=== PATIENT | male | born 1975 | race Caucasian/White ===

== ENCOUNTER 2023-12-25 08:49 | Outpatient (CLI) | payer OTHER ==
--- NOTE | 2023-12-25 13:27 | MRI Report ---
PROCEDURE: Cervical Spine WO INDICATIONS: CERIVCALGIA TECHNIQUE: Noncontrast sagittal T1 spin echo and T2 fast spin echo, sagittal STIR, foraminal oblique sagittal T2 fast spin echo, and axial gradient echo or T2 fast spin echo through the cervical spine. COMPARISON: None. FINDINGS: Image quality: Excellent. Alignment and Curvature: There is normal bony alignment. Bone Marrow: Marrow demonstrates normal overall signal. Spinal Cord: Visualized spinal cord has normal size and signal. No cerebellar tonsillar herniation. Paraspinous Soft Tissues: No paravertebral masses. Prevertebral soft tissues are normal in thicknes s. C2-C3: Normal in appearance. C3-C4: Normal in appearance. C4-C5: Slight loss of disc signal. Minimal, diffuse disc bulge. No central stenosis. No neural roberto inal narrowing. No neural compression. C5-C6: Loss of disc signal and slight loss of disc height. Mild, diffuse disc bulge. Central/left ce ntral disc protrusion. Moderate narrowing of the central canal. Mild bilateral neural foraminal narro wing. No neural compression. C6-C7: Loss of disc signal and mild loss of disc height. Moderate, diffuse disc bulge. Mild to moder ate narrowing of the central canal. Mild bilateral neural foraminal narrowing. No neural compression. C7-T1: Slight loss of disc signal. Minimal, diffuse disc bulge. No central stenosis. No neural roberto inal narrowing. No neural compression. IMPRESSION: Multilevel degenerative disease. No severe central canal stenosis. No severe neural foraminal narrowing. No neural compression. Reviewed by: Maribeth Hurst MD, PhD on 12/25/2023 1:26 PM PDT Approved by: Maribeth Hurst MD, PhD on 12/25/2023 1:26 PM PDT Station ID: [id number]
== END 2023-12-25 08:50 | disposition home or self-care (01) ==
LOC: DI 08:49
PROVIDERS: ATTEND Nurse Practitioner Family
DX: M50.321 Other cervical disc degeneration at C4-C5 level (principal); M48.02 Spinal stenosis, cervical region